=== PATIENT | male | born 1990 | race Caucasian/White ===

== ENCOUNTER 2022-09-25 00:16 | Emergency (ER) | payer SELFPAY ==
[~2022-09-25] VITALS: Ht 172.7 cm; Wt 79.4 kg
[2022-09-25 00:16] VITALS: BP_SYST 132
--- NOTE | 2022-09-25 00:16 | NUR ---
Triaged patient and placed in ER bed 1 for evaluation. VSS, denied any acute respiratory distress at this time. penal officer at bedside. Bed placed in lowest position with side rails up. Report given to Satish RN for continuity of care. Instructed to notify ED staff for any changes in condition or worsening of symptoms while waiting to be seen by a provider. Patient verbalized understanding.
[2022-09-25 00:49] VITALS: BP_SYST 158
== END 2022-09-25 00:49 ==
LOC: SED 00:16
DX: Z02.89 Encounter for other administrative examinations (principal); F11.20 Opioid dependence, uncomplicated; R53.1 Weakness; K21.9 Gastro-esophageal reflux disease without esophagitis; Z79.899 Other long term (current) drug therapy
CPT/HCPCS: 93005; 99283